=== PATIENT | female | born 1955 | race African-American/Black ===

== ENCOUNTER 2016-11-01 19:48 | Emergency (ER) | payer OTHER ==
[~2016-11-01] VITALS: Ht 154.9 cm; Wt 63.5 kg
[~2016-11-01 19:48] MED LIST: ALEVE220 M2 PO; AMLODIPINE BESY10 MG ORAL; AMLODIPINE BESYL5 MG ORAL; ANESTHETIC ORAL14 GM ORO; COLCHICINE0.6 M1 PO; DILANTIN100 MG ORAL; IBUPROFEN600 MG ORAL; LISINOPRIL20 MG ORAL; LISINOPRIL5 MG ORAL; MELOXICAM15 MG PO; NKM; NORCO 5-325 TA1 EACH ORAL; PREDNISONE20 M1 PO; RANITIDINE HCL150 MG PO; TRAMADOL HCL50 MG ORAL; VICODIN ES 7.51 EAC1 ORAL
[2016-11-01] MEDS ORDERED: Ketorolac 30mg Inj IM ONE (20:15)
[2016-11-01] MEDS ORDERED: IBUPROFEN600 MG ORAL (21:07)
[2016-11-01 21:08] VITALS: BP 132/87
[2016-11-01 21:15] VITALS: BP 132/87
--- NOTE | 2016-11-01 22:00 | Emergency Room Report ---
History of Present Illness General Chief Complaint: Pain Source: Patient Present Illness HPI 61-year-old female presents ED complaining of right knee pain. States she's had the pain for last 6 months but has not received medical attention yet. Patient states pain is throbbing, 8/10, worse with walking. Worse at the end of the day. No other aggravating or relieving factors. Denies any other associated symptom Allergies: Coded Allergies: NO KNOWN ALLERGIES (Unverified Allergy, Unknown, 01/24/15) Patient History Past Medical History: DM, HTN, seizures Past Surgical History: none Pertinent Family History: none Social History: Denies: alcohol use, drug use, smoking Now: No Immunizations: UTD Reviewed Nursing Documentation: PMH: Agreed, PSxH: Agreed Nursing Documentation-PMH Hx Hypertension: Yes Hx Diabetes: Yes - prediabetic Hx Gastrointestinal Problems: Yes Hx Seizures: Yes Review of Systems All Other Systems: negative except mentioned in HPI Physical Exam Vital Signs Date Time Temp Pulse Resp B/P Pulse Ox O2 Delivery O2 Flow Rate FiO2 11/01/16 19:56 98.1 76 17 134/91 98 Room Air Sp02 EP Interpretation: reviewed, normal General Appearance: no apparent distress, alert, GCS 15, non-toxic Head: normocephalic, atraumatic Eyes: bilateral eye PERRL, bilateral eye normal inspection ENT: hearing grossly normal, normal pharynx, no angioedema, normal voice Neck: full range of motion, supple/symm/no masses Respiratory: chest non-tender, lungs clear, normal breath sounds, speaking full sentences Cardiovascular #1: regular rate, rhythm, no edema Cardiovascular #2: 2+ carotid (R), 2+ carotid (L), 2+ radial (R), 2+ radial (L) , 2+ dorsalis pedis (R), 2+ dorsalis pedis (L) Gastrointestinal: normal bowel sounds, non tender, soft, non-distended, no guarding, no rebound Rectal: deferred Genitourinary: normal inspection, no CVA tenderness Musculoskeletal: back normal, gait/station normal, normal range of motion, tender - lateral aspect R knee Neurologic: alert, oriented x3, responsive, motor strength/tone normal, sensory intact, speech normal Psychiatric: judgement/insight normal, memory normal, mood/affect normal, no suicidal/homicidal ideation Reflexes: 3+ bicep (R), 3+ bicep (L), 3+ tricep (R), 3+ tricep (L), 3+ knee (R) , 3+ knee (L) Skin: normal color, no rash, warm/dry, well hydrated Lymphatic: no adenopathy Procedures Splinting Splinting : Pre-Made Type: PEGGY wrap - R knee Medical Decision Making Diagnostic Impression: Primary Impression: Knee pain Qualified Codes: M25.561 - Pain in right knee ER Course Hospital Course 61-year-old F presents to ED complaining of R knee pain x 6 months. Differential diagnoses include: Fracture, dislocation, sprain, contusion Clinical course Patient placed on stretcher. After initial history and physical, I ordered pain medications and Xrays of R knee Xrays prelim read shows no acute fracture/dislocation. Some minimal joint spacing noted. Given the pain is worse at end of the day consistent with arthritis. placed in peggy wrap Diagnosis - ankle sprain Stable and discharged to home with prescription for Motrin. apply ice, keep elevated. weight bear as tolerated. Followup with PMD. Return to ED if symptoms recur or worsen Other X-Ray Diagnostic Results Other X-Ray Diagnostic Results : X-Ray Ordered: R knee EP Interpretation: Yes Findings: no fractures, no dislocation, no soft tissue swelling Number of Views: 3 Last Vital Signs Date Time Temp Pulse Resp B/P Pulse Ox O2 Delivery O2 Flow Rate FiO2 11/01/16 21:15 98.1 84 17 132/87 98 Room Air Status: improved Disposition: HOME, SELF-CARE Condition: Stable Scripts Ibuprofen* (MOTRIN*) 600 Mg Tablet 600 MG ORAL Q8H Y for For Pain, #30 TAB 0 Refills Prov: LYNDON FERGUSON M.D. 11/01/16 Referrals: [facility] (PCP) Patient Instructions: Osteoarthritis Additional Instructions: apply ice, take nsaids, elevate LYNDON FERGUSON M.D. Nov 01, 2016 22:00
--- NOTE | 2016-11-02 10:35 | Diagnostic Imaging Report ---
Indication: Pain 3 views of the right knee were obtained. Findings: There is a joint effusion. There is narrowing of the medial and patellofemoral compartments with mild osteophyte formation. No acute fracture seen. Surgical clips noted in the lower femur. Impression: Osteoarthritis Joint effusion
== END 2016-11-01 21:17 | disposition home or self-care (01) ==
LOC: EMR 20:13
DX: M25.561 Pain in right knee (principal); I10 Essential (primary) hypertension; E11.9 Type 2 diabetes mellitus without complications; M17.11 Unilateral primary osteoarthritis, right knee
CPT/HCPCS: 29530; 73562; 96372; 99283; J1885

== ENCOUNTER 2017-06-27 08:34 | Emergency (ER) | payer MEDICAID, OTHER ==
[~2017-06-27] VITALS: Ht 157.5 cm; Wt 64.4 kg
[2017-06-27 08:50] VITALS: BP 123/89
[2017-06-27] MEDS ORDERED: Ketorolac 30mg Inj IV ONE (09:00)
--- NOTE | 2017-06-27 09:09 | Emergency Room Report ---
History of Present Illness General Chief Complaint: General Complaint Source: Patient, Medical Record Present Illness HPI Patient is a 62-year-old female who presented after increased left-sided facial pain and neck pain. The patient gradual onset of symptoms over the 3 days. Had patient denied any arm weakness. She reports having no recent trauma. She denied having any fever. Patient had reportedly been taking medications for hypertension. She denied any fever headache. She denied any chest pain. Allergies: Coded Allergies: NO KNOWN ALLERGIES (Unverified Allergy, Unknown, 01/24/15) Patient History Past Medical History: see triage record Reviewed Nursing Documentation: PMH: Agreed, PSxH: Agreed Nursing Documentation-PMH Past Medical History: No History, Except For Hx Hypertension: Yes Hx Diabetes: Yes - prediabetic Hx Gastrointestinal Problems: Yes - Hepatitis C History Of Psychiatric Problem: Yes - Depression Hx Seizures: Yes Review of Systems All Other Systems: negative except mentioned in HPI Physical Exam Vital Signs Date Time Temp Pulse Resp B/P (MAP) Pulse Ox O2 Delivery O2 Flow Rate FiO2 06/27/17 08:40 98.1 83 14 119/84 99 Room Air Sp02 EP Interpretation: reviewed, normal General Appearance: normal inspection, well appearing, no apparent distress, alert, GCS 15, non-toxic Head: atraumatic ENT: normal ENT inspection, hearing grossly normal, normal voice Neck: normal inspection, full range of motion, supple, no bony tend Respiratory: normal inspection, lungs clear, normal breath sounds, no respiratory distress, no retraction, no wheezing Cardiovascular #1: regular rate, rhythm, no edema Gastrointestinal: normal inspection, normal bowel sounds, non tender, soft, no guarding, no hernia Genitourinary: no CVA tenderness Musculoskeletal: normal inspection, back normal, normal range of motion Neurologic: normal inspection, alert, oriented x3, responsive, trimmer climber III-XII nml as tested, motor strength/tone normal, DTRs symmetric, SLR negative, speech normal, oriented Psychiatric: normal inspection, judgement/insight normal, mood/affect normal Skin: normal inspection, normal color, no rash Medical Decision Making Diagnostic Impression: Primary Impression: Acute neck pain ER Course Patient presented for neck pain. Differential diagnosis included vertebral artery dissection, myocardial infarction, cervical fracture, arthritis, spondylolithises. Because of complexity of patient's case laboratory testing and imaging studies were ordered. I EKG interpreted by me showed normal sinus rhythm with a rate of [address] or T wave changes.The patient was given pain medications. She is given prescription methocarbamol. A CT of the neck with contrast showed no evidence of acute dissection. CT head read by radiology showed a chronic white matter changes without evident CVA. The patient is advised to follow up with primary care doctor in 1-2 days. Patient is advised to return if any worsening condition or if any changes in status that are concerning. Labs Test 06/27/17 09:05 White Blood Count 5.3 K/UL (4.8-10.8) Red Blood Count 4.45 M/UL (4.20-5.40) Hemoglobin 12.9 G/DL (12.0-16.0) Hematocrit 39.0 % (37.0-47.0) Mean Corpuscular Volume 88 FL (80-99) Mean Corpuscular Hemoglobin 29.0 PG (27.0-31.0) Mean Corpuscular Hemoglobin Concent 33.1 G/DL (32.0-36.0) Red Cell Distribution Width 12.0 % (11.6-14.8) Platelet Count 146 K/UL (150-450) Mean Platelet Volume 8.4 FL (6.5-10.1) Neutrophils (%) (Auto) 54.9 % (45.0-75.0) Lymphocytes (%) (Auto) 33.3 % (20.0-45.0) Monocytes (%) (Auto) 6.6 % (1.0-10.0) Eosinophils (%) (Auto) 4.3 % (0.0-3.0) Basophils (%) (Auto) 1.0 % (0.0-2.0) Prothrombin Time 9.8 SEC (9.30-11.50) Prothromb Time International Ratio 0.9 (0.9-1.1) Activated Partial Thromboplast Time 28 SEC (23-33) Sodium Level 141 MMOL/L (136-145) Potassium Level 4.1 MMOL/L (3.5-5.1) Chloride Level 107 MMOL/L (98-107) Carbon Dioxide Level 27 MMOL/L (21-32) Anion Gap 7 mmol/L (5-15) Blood Urea Nitrogen 13 mg/dL (7-18) Creatinine 0.8 MG/DL (0.55-1.30) Estimat Glomerular Filtration Rate > 60 mL/min (>60) Glucose Level 89 MG/DL (74-106) Calcium Level 8.9 MG/DL (8.5-10.1) Total Bilirubin 0.3 MG/DL (0.2-1.0) Aspartate Amino Transf (AST/SGOT) 21 U/L (15-37) Alanine Aminotransferase (ALT/SGPT) 18 U/L (12-78) Alkaline Phosphatase 124 U/L (46-116) Troponin I 0.000 ng/mL (0.000-0.056) Total Protein 6.8 G/DL (6.4-8.2) Albumin 3.1 G/DL (3.4-5.0) Globulin 3.7 g/dL Albumin/Globulin Ratio 0.8 (1.0-2.7) Thyroid Stimulating Hormone (TSH) 1.515 uiU/mL (0.358-3.740) Last Vital Signs Date Time Temp Pulse Resp B/P (MAP) Pulse Ox O2 Delivery O2 Flow Rate FiO2 06/27/17 08:40 98.1 83 14 119/84 99 Room Air Status: improved Disposition: HOME, SELF-CARE Condition: Stable Scripts Methocarbamol* (ROBAXIN*) 500 Mg Tablet 500 MG PO TID, #21 TAB 0 Refills Prov: Dudley Blum 06/27/17 Dudley Blum Jun 27, 2017 09:09
--- NOTE | 2017-06-27 09:35 | Diagnostic Imaging Report ---
Indication: Headache Technique: Continuous helical CT scanning of the head was performed without intravenous contrast material. Axial and coronal 5 mm sections were generated. Dose: Total Dose Length Product - DLP routine [address] Dose Index - CTDIvol(s) 70.38 mGy. Automated exposure control was utilized for dose reduction. Comparison: 03/23/2011 Findings: The ventricles and sulci are normal. There is some periventricular and subcortical white matter low density. There is no shift of midline structures. No abnormal extra-axial fluid collections are noted. There is no evidence of intracerebral bleeding. No other abnormal high or low density areas are noted within the brain. Impression: Periventricular and subcortical white matter low density most consistent with chronic small vessel white matter ischemic change. Otherwise negative. The CT scanner at [facility] [place] is accredited by the [employer] and the scans are performed using protocols designed to limit radiation exposure to as low as reasonably achievable to attain images of sufficient resolution adequate for diagnostic evaluation.
[2017-06-27 09:37] LABS: ANION GAP 7 mmol/L (5-15); CALCIUM 8.9 MG/DL (8.5-10.1); CARBON DIOXIDE 27 MMOL/L (21-32); CHLORIDE 107 MMOL/L (98-107); CREATININE 0.8 MG/DL (0.55-1.30); GLOMERULAR FILTRATION RATE > 60 mL/min (>60); POTASSIUM 4.1 MMOL/L (3.5-5.1); SODIUM 141 MMOL/L (136-145)
[2017-06-27 09:43] LABS: EOSINOPHILS % (AUTO) 4.3 % (0.0-3.0); LYMPHOCYTES % (AUTO) 33.3 % (20.0-45.0); MEAN CORPUSCULAR HGB CONC 33.1 G/DL (32.0-36.0); MEAN CORPUSCULAR VOLUME 88 FL (80-99); MEAN PLATELET VOLUME 8.4 FL (6.5-10.1); MONOCYTES % (AUTO) 6.6 % (1.0-10.0); NEUTROPHILS % (AUTO) 54.9 % (45.0-75.0); PLATELET COUNT 146 K/UL (150-450); RED BLOOD COUNT 4.45 M/UL (4.20-5.40); WHITE BLOOD COUNT 5.3 K/UL (4.8-10.8)
[2017-06-27 09:47] LABS: INR 0.9 (0.9-1.1); PROTHROMBIN TIME 9.8 SEC (9.30-11.50)
[2017-06-27 09:50] LABS: ALANINE AMINOTRANSFERASE 18 U/L (12-78); ALBUMIN/GLOBULIN RATIO 0.8 (1.0-2.7); ASPARTATE AMINO TRANSFERASE 21 U/L (15-37); THYROID STIMULATING HORMONE 1.515 uiU/mL (0.358-3.740); TOTAL PROTEIN 6.8 G/DL (6.4-8.2)
[2017-06-27] MEDS ORDERED: ROBAXIN500 MG PO (11:48)
[2017-06-27 12:00] VITALS: BP 121/94
--- NOTE | 2017-06-30 15:39 | Cardiology Report ---
APPROVED REPORT EKG Measurement Heart [id number] Normal sinus rhythm Possible Left atrial enlargement Borderline ECG
== END 2017-06-27 12:00 | disposition home or self-care (01) ==
LOC: EMR 09:12
DX: M54.2 Cervicalgia (principal); R51 Headache; I10 Essential (primary) hypertension; F32.9 Major depressive disorder, single episode, unspecified; Z86.69 Personal history of other diseases of the nervous system and sense organs
CPT/HCPCS: 36415; 70450; 80053; 84443; 84484; 85025; 85610; 85730; 93005; 96374; 99284; J1885

== ENCOUNTER 2017-09-13 19:49 | Emergency (ER) | payer MEDICAID ==
[~2017-09-13] VITALS: Ht 157.5 cm; Wt 66.7 kg
[~2017-09-13 19:49] MED LIST changes: +ROBAXIN500 MG PO
[2017-09-13] MEDS ORDERED: GABAPENTIN300 MG ORAL (20:02)
[2017-09-13 20:15] VITALS: BP 106/78
[2017-09-13] MEDS ORDERED: ALPRAZOLAM0.25 MG ORAL (20:46)
[2017-09-13 20:55] VITALS: BP 106/78
--- NOTE | 2017-09-15 02:17 | Emergency Room Report ---
History of Present Illness General Chief Complaint: General Complaint Source: Patient Present Illness HPI 62-year-old female presents ED for evaluation. States that she feels very anxious and is crying. States she has to move out of her apartment next week. Did not know where she is going to live. patient states her heart is racing. Denies any chest pain or shortness of breath. Denies alcohol or drug use. Denies suicidal or homicidal ideation. No other aggravating relieving factors. Denies any other associated symptoms Allergies: Coded Allergies: NO KNOWN ALLERGIES (Unverified Allergy, Unknown, 01/24/15) Patient History Past Medical History: DM, HTN Past Surgical History: none Pertinent Family History: none Social History: Denies: smoking, alcohol use, drug use Now: No Immunizations: UTD Reviewed Nursing Documentation: PMH: Agreed, PSxH: Agreed Nursing Documentation-PMH Past Medical History: No History, Except For Hx Cardiac Problems: No - Arthritis Hx Hypertension: Yes Hx Diabetes: Yes - prediabetic Hx Gastrointestinal Problems: Yes - Hepatitis C Hx Seizures: Yes Review of Systems All Other Systems: negative except mentioned in HPI Physical Exam Vital Signs Date Time Temp Pulse Resp B/P (MAP) Pulse Ox O2 Delivery O2 Flow Rate FiO2 09/13/17 19:57 98.2 98 16 106/78 98 Room Air Sp02 EP Interpretation: reviewed, normal General Appearance: no apparent distress, alert, GCS 15, non-toxic Head: normocephalic, atraumatic Eyes: bilateral eye normal inspection, bilateral eye PERRL ENT: hearing grossly normal, normal pharynx, no angioedema, normal voice Neck: full range of motion, supple/symm/no masses Respiratory: chest non-tender, lungs clear, normal breath sounds, speaking full sentences Cardiovascular #1: regular rate, rhythm, no edema Cardiovascular #2: 2+ carotid (R), 2+ carotid (L), 2+ radial (R), 2+ radial (L) , 2+ dorsalis pedis (R), 2+ dorsalis pedis (L) Gastrointestinal: normal bowel sounds, non tender, soft, non-distended, no guarding, no rebound Rectal: deferred Genitourinary: normal inspection, no CVA tenderness Musculoskeletal: back normal, gait/station normal, normal range of motion, non- tender Neurologic: alert, oriented x3, responsive, motor strength/tone normal, sensory intact, speech normal Psychiatric: judgement/insight normal, memory normal, no suicidal/homicidal ideation, depressed affect, anxious Reflexes: 3+ bicep (R), 3+ bicep (L), 3+ tricep (R), 3+ tricep (L), 3+ knee (R) , 3+ knee (L) Skin: normal color, no rash, warm/dry, well hydrated Lymphatic: no adenopathy Medical Decision Making Diagnostic Impression: Primary Impression: Anxiety ER Course Hospital Course 62-year-old female presents ED crying, feeling anxious Differential diagnoses include: psychosis, substance abuse, anxiety Clinical course Patient placed on stretcher. on playground monitor. After initial history, exam reveals an elderly female in no acute distress. Upon arrival patient is tearful but is maintaining eye contact. Has stressful situation regarding her living situation. Patient states she feels very anxious. However there is no evidence of suicidal or homicidal ideation. I do not believe patient is a danger to herself or others Agreed to prescribe patient some xanax I. I feel this is a highly complex case requiring extensive working including EKG/Rhythm strip, Xray/CT/US, Blood/urine lab work, repeat exams while in ED, and administration of strong opiates/narcotics for pain control, admission to hospital or close patient follow up. Diagnosis - anxiety Stable and discharged to home with Rx Xanax. Followup with PMD. Return to ED if symptoms recur or worse Last Vital Signs Date Time Temp Pulse Resp B/P (MAP) Pulse Ox O2 Delivery O2 Flow Rate FiO2 09/13/17 20:55 98.2 78 16 106/78 98 Room Air Status: improved Disposition: HOME, SELF-CARE Condition: Stable Scripts Alprazolam* (XANAX*) 0.25 Mg Tablet 0.25 MG ORAL TID Y for For Anxiety, #20 TAB Prov: LYNDON FERGUSON M.D. 09/13/17 Patient Instructions: Panic Attacks, [id number] LYNDON FERGUSON M.D. Sep 15, 2017 02:17
== END 2017-09-13 20:55 | disposition home or self-care (01) ==
LOC: EMR 20:25
DX: F41.9 Anxiety disorder, unspecified (principal); I10 Essential (primary) hypertension; E11.9 Type 2 diabetes mellitus without complications
CPT/HCPCS: 99283

== ENCOUNTER 2017-10-01 00:37 | Emergency (ER) | payer MEDICAID ==
[~2017-10-01] VITALS: Ht 157.5 cm; Wt 66.2 kg
[~2017-10-01 00:37] MED LIST changes: +ALPRAZOLAM0.25 MG ORAL; +GABAPENTIN300 MG ORAL
[2017-10-01 00:51] VITALS: BP 135/91
--- NOTE | 2017-10-01 01:17 | Emergency Room Report ---
History of Present Illness General Chief Complaint: General Complaint Source: Patient Present Illness HPI Is a 62-year-old female presents with chief complaint of face getting darker. Onset for month or so. She was here earlier this month and did not mention anything about it. No pain. No trauma. No weight loss. Denies any other complaint. Allergies: Coded Allergies: NO KNOWN ALLERGIES (Unverified Allergy, Unknown, 01/24/15) Patient History Past Medical History: see triage record, old chart reviewed Past Surgical History: none Pertinent Family History: none Social History: Denies: smoking Now: No Immunizations: other Reviewed Nursing Documentation: PMH: Agreed, PSxH: Agreed Nursing Documentation-PMH Hx Cardiac Problems: No - Arthritis Hx Hypertension: Yes Hx Diabetes: Yes - prediabetic Hx Gastrointestinal Problems: Yes - Hepatitis C Hx Seizures: Yes Review of Systems Eye: Denies: eye pain, blurred vision ENT: Denies: ear pain, nose congestion, throat swelling Respiratory: Denies: cough, shortness of breath Cardiovascular: Denies: chest pain, palpitations Gastrointestinal: Denies: abdominal pain, diarrhea, nausea, vomiting Musculoskeletal: Denies: back pain, joint pain Skin: Denies: rash Neurological: Denies: headache, numbness Endocrine: Denies: increased thirst, increased urine Hematologic/Lymphatic: Denies: easy bruising All Other Systems: negative except mentioned in HPI Physical Exam Vital Signs Date Time Temp Pulse Resp B/P (MAP) Pulse Ox O2 Delivery O2 Flow Rate FiO2 10/01/17 00:40 98.5 85 16 135/91 96 Room Air 98.4 vitals normal Medical Decision Making Diagnostic Impression: Primary Impression: Skin abnormality ER Course She complaining of skin darkening. No trauma. She is dark skin and is reflected in her hands also. She denies any changes to her hands. There is no emergency here. Explained to the patient that she has some hormonal issue causing changes in her skin color is this can be worked up as an outpatient. We 'll discharge home. Last Vital Signs Date Time Temp Pulse Resp B/P (MAP) Pulse Ox O2 Delivery O2 Flow Rate FiO2 10/01/17 00:51 98.4 85 16 135/91 96 Room Air 98.4 Status: unchanged Disposition: HOME, SELF-CARE Condition: Stable Additional Instructions: followup with your DrGal for further workup regarding the color change in your skin. This type of testing cannot be done in the ER.return if symptom worsen. LETICIA PETIT M.D. Oct 01, 2017 01:17
[2017-10-01 01:30] VITALS: BP 135/91
== END 2017-10-01 01:30 | disposition home or self-care (01) ==
LOC: EMR 01:03
DX: L98.9 Disorder of the skin and subcutaneous tissue, unspecified (principal); I10 Essential (primary) hypertension; B19.20 Unspecified viral hepatitis C without hepatic coma
CPT/HCPCS: 99282

== ENCOUNTER 2018-01-19 06:09 | Emergency (ER) | payer MEDICAID ==
[~2018-01-19] VITALS: Ht 157.5 cm; Wt 60.3 kg
[2018-01-19 06:35] VITALS: BP 106/72
[2018-01-19] MEDS ORDERED: NORCO 5-325 TA1 EACH ORAL (06:40)
[2018-01-19] MEDS ORDERED: ZOFRAN4 MG ORAL (06:40)
[2018-01-19] MEDS ORDERED: GABAPENTIN300 MG ORAL (06:40)
[2018-01-19 06:53] VITALS: BP 106/72
--- NOTE | 2018-01-19 07:05 | Emergency Room Report ---
History of Present Illness General Chief Complaint: Pain Source: Patient Present Illness HPI Patient presents with complaints of diffuse body ache Back pain shoulder pain Lower extremity pain Initially patient reports that she is not sure why she has these pains Denies any fall or trauma Denies any chest pain or shortness of breath Denies any fevers or chills After reviewing CURES and discussing with her the regular pain medications she is receiving, she reports that she does have pain management for her arthritis and other pains however has not been having appropriate follow-up Allergies: Coded Allergies: NO KNOWN ALLERGIES (Unverified Allergy, Unknown, 01/19/18) Patient History Past Medical History: see triage record Pertinent Family History: none Reviewed Nursing Documentation: PMH: Agreed; PSxH: Agreed Nursing Documentation-PMH Hx Cardiac Problems: No - Arthritis Hx Hypertension: Yes Hx Seizures: Yes Review of Systems All Other Systems: negative except mentioned in HPI Physical Exam Vital Signs Date Time Temp Pulse Resp B/P (MAP) Pulse Ox O2 Delivery O2 Flow Rate FiO2 01/19/18 06:18 62 16 106/72 97 Room Air Sp02 EP Interpretation: reviewed, normal General Appearance: well appearing, no apparent distress Head: normocephalic, atraumatic Eyes: bilateral eye PERRL, bilateral eye EOMI ENT: hearing grossly normal, normal pharynx, TMs + canals normal, uvula midline Neck: full range of motion, supple, no meningismus, no bony tend Respiratory: lungs clear, normal breath sounds, no rhonchi, no respiratory distress, no retraction, no accessory muscle use Cardiovascular #1: normal peripheral pulses, regular rate, rhythm, no edema, no gallop, no JVD, no murmur Gastrointestinal: normal bowel sounds, non tender, soft, no mass, no organomegaly, non-distended, no guarding, no hernia, no pulsatile mass, no rebound Genitourinary: no CVA tenderness Musculoskeletal: normal inspection - Ambulate with a cane Neurologic: oriented x3, responsive, laundry machine operator III-XII nml as tested, motor strength/ tone normal, sensory intact Psychiatric: mood/affect normal Skin: normal color, no rash, warm/dry, palpation normal Lymphatic: normal inspection, no adenopathy Medical Decision Making Diagnostic Impression: Primary Impression: myalgia ER Course Patient has a benign medical evaluation Hemodynamically stable Patient feels that she is not getting the workup she requires outpatient reports that she has not been able to see her physician secondary to being on vacation/maternity On review of medical records patient also appears to be getting regular pain medications along with benzodiazepine This patient requires improved outpatient care It does appear that for the past 2 months patient has not had her regular medication which can explain her exacerbation of pain she was provided with prescription and requires close follow-up Last Vital Signs Date Time Temp Pulse Resp B/P (MAP) Pulse Ox O2 Delivery O2 Flow Rate FiO2 01/19/18 06:53 16 106/72 97 Room Air 01/19/18 06:18 62 Status: unchanged Disposition: HOME, SELF-CARE Condition: Stable Scripts Ondansetron (Zofran) 4 Mg Tablet 4 MG ORAL Q8H PRN for Nausea & Vomiting, #10 TAB 0 Refills Prov: Neville Meyers DO 01/19/18 Gabapentin* (GABAPENTIN*) 300 Mg Capsule 300 MG ORAL THREE TIMES A DAY, #30 CAP 0 Refills Prov: Neville Meyers DO 01/19/18 Hydrocodone Bit/Acetaminophen 5-325* (NORCO 5-325*) 1 Each Tablet 1 TAB ORAL Q6H PRN for For Pain, #10 TAB 0 Refills Prov: Neville Meyers DO 01/19/18 Referrals: NOT CHOSEN [facility]/MD,REFERRING Patient Instructions: Muscle Pain, Adult Additional Instructions: Patient is provided with the discharge instructions notified to follow up with primary doctor in the next 2-3 days otherwise return to the er with any worsening symptoms. Please note that this report is being documented using [employer] technology. This can lead to erroneous entry secondary to incorrect interpretation by the dictating instrument. Neville Meyers DO Jan 19, 2018 07:05
== END 2018-01-19 06:53 | disposition home or self-care (01) ==
LOC: EMR 06:37
DX: M79.1 Myalgia (principal); I10 Essential (primary) hypertension; Z86.69 Personal history of other diseases of the nervous system and sense organs
CPT/HCPCS: 99284

== ENCOUNTER 2018-12-18 22:51 | Emergency (ER) | payer MEDICAID, OTHER ==
[~2018-12-18] VITALS: Ht 154.9 cm; Wt 59.0 kg
[~2018-12-18 22:51] MED LIST changes: +ZOFRAN4 MG ORAL
--- NOTE | 2018-12-18 23:26 | NUR ---
ED Nurse Note: Pt from home, AAOx4, ambulatory, c/o left ear pain and tinnitus for 3 months but after taking [facility] Rx drops for 6 days no change with ear pain now 8/10 and now [place] in the left ear. Will assess and carry out ER MD's orders.
[2018-12-18 23:30] VITALS: BP 110/76
--- NOTE | 2018-12-18 23:38 | Emergency Room Report ---
History of Present Illness General Chief Complaint: Earache Source: Patient Present Illness HPI Patient presents with 3 months of left earache. She's been using earwax removal system. She denies any pain when she touches the ear lobe. She denies sore throat or fever or chills. Prior history of substance abuse. No chest pain, palpitations, nausea, vomiting, diarrhea, dysuria, abdominal pain , shortness of breath, depression, visual changes, headache. Allergies: Coded Allergies: NO KNOWN ALLERGIES (Unverified Allergy, Unknown, 01/19/18) Patient History Social History: Denies: smoking Social History Narrative Drove herself here Last Menstrual Period: stop at 2003 Now: No Reviewed Nursing Documentation: PMH: Agreed; PSxH: Agreed Nursing Documentation-PMH Hx Cardiac Problems: No - Arthritis Hx Hypertension: Yes Hx Seizures: Yes Review of Systems All Other Systems: negative except mentioned in HPI Physical Exam Vital Signs Date Time Temp Pulse Resp B/P (MAP) Pulse Ox O2 Delivery O2 Flow Rate FiO2 12/18/18 23:08 98.2 81 20 98 Room Air 12/18/18 23:30 110/76 General Appearance: well appearing, no apparent distress Head: normocephalic, atraumatic Eyes: bilateral eye PERRL, bilateral eye Scleral Injection ENT: hearing grossly normal, normal pharynx, normal voice, other - Left tympanic membrane with fluid and minimal erythema no pinna tenderness Neck: full range of motion, supple Respiratory: lungs clear, no respiratory distress, speaking full sentences Cardiovascular #1: regular rate, rhythm Cardiovascular #2: 2+ radial (L) Gastrointestinal: normal inspection Musculoskeletal: digits/nails normal, gait/station normal, no calf tenderness Neurologic: alert, oriented x3, grossly normal Psychiatric: mood/affect normal Skin: no rash Medical Decision Making Diagnostic Impression: Primary Impression: Left otitis media Qualified Codes: H66.002 - Acute suppurative otitis media without spontaneous rupture of ear drum, left ear ER Course Presents with left ear pain. At this time but exam is consistent with otitis media. She has no pinna tenderness. Antibiotics are indicated as well as pain medication. Patient stable for outpatient observation and treatment. Last Vital Signs Date Time Temp Pulse Resp B/P (MAP) Pulse Ox O2 Delivery O2 Flow Rate FiO2 12/18/18 23:30 98.2 80 20 110/76 98 Room Air Status: improved Disposition: HOME, SELF-CARE Condition: Improved Scripts Tramadol Hcl* (ULTRAM*) 50 Mg Tablet 50 MG ORAL Q6H PRN for For Pain, #6 TAB 0 Refills Prov: Emil Bosch MD 12/18/18 Acetaminophen (Tylenol) 325 Mg Tablet 650 MG ORAL Q6H PRN for Prn Pain/Headache/Temp > 101, #20 TAB 0 Refills Prov: Emil Bosch MD 12/18/18 Amoxicillin* (AMOXIL*) 500 Mg Capsule 500 MG ORAL THREE TIMES A DAY, #21 CAP Prov: Emil Bosch MD 12/18/18 Emil Bosch MD December 18, 2018 23:38
[2018-12-18] MEDS ORDERED: TRAMADOL HCL50 MG ORAL (23:40)
[2018-12-18] MEDS ORDERED: TYLENOL325 MG ORAL (23:40)
[2018-12-18] MEDS ORDERED: AMOXICILLIN500 MG ORAL (23:40)
[2018-12-18] MEDS ORDERED: Acetaminophen 500mg (ES) tab ORAL ONE (23:45)
--- NOTE | 2018-12-18 23:47 | NUR ---
ED Nurse Note: Pt cleared by health care Provider for discharge. DC instructions/prescription was given and explained to pt and verbalized understanding of teachings. All medical deviecs such as ID band removed. Pt is AAO x4, ambulatory and left with all personal belongings.
== END 2018-12-18 23:47 | disposition home or self-care (01) ==
LOC: EMR 23:42
DX: H66.92 Otitis media, unspecified, left ear (principal); I10 Essential (primary) hypertension
CPT/HCPCS: 99282

== ENCOUNTER 2018-12-29 15:57 | Emergency (ER) | payer OTHER ==
[~2018-12-29] VITALS: Ht 154.9 cm; Wt 59.0 kg
[~2018-12-29 15:57] MED LIST changes: +AMOXICILLIN500 MG ORAL; +TYLENOL325 MG ORAL
[2018-12-29 16:30] VITALS: BP 129/89
--- NOTE | 2018-12-29 16:30 | NUR ---
ED Nurse Note: pt came in due to tinitus and earache x 2 week despite of antibiotic use, pt able to walk with steady gait. seen by grace frost. will continue to monitor
--- NOTE | 2018-12-29 16:35 | Emergency Room Report ---
History of Present Illness General Chief Complaint: Earache Source: Patient Present Illness HPI 63 YO female presents to the ED c/o Tinnitus and 8/10 in severity fullness. no ear d/c. pt. finished course of amoxicillin abx. Pt. denies fevers, chills, swollen tender lymph nodes. pain behind the ear or external ear tenderness/ pain. Denies neck pain. Denies dizziness, N/V, ADAMS or loss of hearing. Allergies: Coded Allergies: NO KNOWN ALLERGIES (Unverified Allergy, Unknown, 01/19/18) Patient History Past Medical History: see triage record Past Surgical History: none Pertinent Family History: none Last Menstrual Period: na Now: No Reviewed Nursing Documentation: PMH: Agreed; PSxH: Agreed Nursing Documentation-PMH Past Medical History: No History, Except For Hx Cardiac Problems: No - Arthritis Hx Hypertension: Yes Hx Seizures: Yes Review of Systems All Other Systems: negative except mentioned in HPI Physical Exam Vital Signs Date Time Temp Pulse Resp B/P (MAP) Pulse Ox O2 Delivery O2 Flow Rate FiO2 12/29/18 16:20 98.1 69 20 129/89 (102) 97 Room Air Sp02 EP Interpretation: reviewed, normal General Appearance: no apparent distress, alert, GCS 15, non-toxic Head: normocephalic, atraumatic Eyes: bilateral eye normal inspection, bilateral eye PERRL ENT: hearing grossly normal, normal voice, other - Left Ear Canal is erythematous and macerated in appearance with some whitish dc noted, no TM involvement, no evidence of mastoiditis or preauricular LAD Neck: full range of motion Respiratory: chest non-tender, lungs clear, normal breath sounds, speaking full sentences Cardiovascular #1: regular rate, rhythm Musculoskeletal: back normal, gait/station normal, normal range of motion, non- tender Neurologic: alert, oriented x3, responsive, motor strength/tone normal, sensory intact, speech normal, grossly normal Psychiatric: judgement/insight normal Skin: normal color, no rash, warm/dry, well hydrated Lymphatic: no adenopathy Medical Decision Making PA Attestation Dr. meeks is my supervising Physician whom patient management has been discussed with. Diagnostic Impression: Primary Impression: Otitis externa of left ear Qualified Codes: H60.502 - Unspecified acute noninfective otitis externa, left ear Additional Impression: Tinnitus of left ear ER Course 63 YO female presents to the ED c/o Tinnitus and fullness. no ear d/c. pt. finished course of amoxicillin abx. Pt. denies fevers, chills, swollen tender lymph nodes. pain behind the ear or external ear tenderness/pain. Denies neck pain. Denies dizziness, N/V, ADAMS or loss of hearing. Ddx considered but are not limited to OM, OE, mastoiditis, TM perforation, FB Vital signs: are WNL, pt. is afebrile H&PE are most consistent with otitis externa ORDERS: none required at this time, the diagnosis is clinical -OTOSCOPY: Left Ear Canal is erythematous and macerated in appearance with some whitish dc noted, no TM involvement, no evidence of mastoiditis or preauricular LAD on PE ED INTERVENTIONS: None required at this time. DISCHARGE: At this time pt. is stable for d/c to home. With Otic ABX. Will provide printed patient care instructions, and any necessary prescriptions. Care plan and follow up instructions have been discussed with the patient prior to discharge. Last Vital Signs Date Time Temp Pulse Resp B/P (MAP) Pulse Ox O2 Delivery O2 Flow Rate FiO2 12/29/18 16:20 98.1 69 20 129/89 (102) 97 Room Air Status: improved Disposition: HOME, SELF-CARE Condition: Stable Scripts Pseudoephedrine Hcl (SUDOGEST) 30 Mg Tablet 30 MG PO Q6HR for 3 Days, #12 TAB Prov: Enedina Covington 12/29/18 Neomycin/Polymyxin B Sulf/Hc (AUUJGHII-EIFUIXIIM-RD EAR SOLN) 10 Ml Solution 4 DROP OT BID for 7 Days, #10 ML Prov: Enedina Covington 12/29/18 Patient Instructions: Otitis Externa, [id number], Tinnitus Additional Instructions: Take medications as directed. Follow up with a Primary Care Provider in 3-5 days, for Ears/Nose/Throat ( ENT) Specialist referral.Even if your symptoms have resolved. --Please review list of primary care clinics, if you do not already have a primary care provider Return sooner to ED if new symptoms occur, or current symptoms become worse. - Please note that this Emergency Department Report was dictated using [employer] audio installer technology software, occasionally this can lead to erroneous entry secondary to interpretation by the dictation equipment. Enedina Covington December 29, 2018 16:35
[2018-12-29] MEDS ORDERED: SUDOGEST30 MG PO (16:40)
[2018-12-29] MEDS ORDERED: NEOMYCIN-POLYMY10 ML OT (16:40)
[2018-12-29 16:50] VITALS: BP 129/89
--- NOTE | 2018-12-29 16:50 | NUR ---
ER DISCHARGE NOTE: Patient is cleared to be discharged per ERMD, pt is aox4, on room air, with stable vital signs. pt was given dc and prescription instructions, pt was able to verbalize understanding, pt id band removed without complications. pt is able to ambulate with steady gait. pt took all belongings.
== END 2018-12-29 16:50 | disposition home or self-care (01) ==
LOC: EMR 16:41
DX: H60.502 Unspecified acute noninfective otitis externa, left ear (principal); H93.12 Tinnitus, left ear; I10 Essential (primary) hypertension; M19.90 Unspecified osteoarthritis, unspecified site; G40.909 Epilepsy, unspecified, not intractable, without status epilepticus
CPT/HCPCS: 99282

== ENCOUNTER 2018-12-31 21:37 | Emergency (ER) | payer OTHER ==
[~2018-12-31] VITALS: Ht 154.9 cm; Wt 60.3 kg
[~2018-12-31 21:37] MED LIST changes: +NEOMYCIN-POLYMY10 ML OT; +SUDOGEST30 MG PO
[2018-12-31 22:12] VITALS: BP 131/91
--- NOTE | 2018-12-31 22:19 | NUR ---
ER Nurse Note: Pt came from home c/o gnerealized pain in her bilateral lower extremites and back for "a while". Pt stated pain is worse today than usual but did not take any medications for the pain. Pt stated she lost weight within one year without trying. Pt a&ox4, VSS, no signs of distress. Urine sample provided; ERMD at pt side; will continue to monitor.
--- NOTE | 2018-12-31 22:29 | Emergency Room Report ---
History of Present Illness General Chief Complaint: General Complaint Source: Patient Present Illness HPI Patient presents with increased body pain. She's on gabapentin at home but is not taking any other narcotics at this time. She can't take nonsteroidals because the hernia in her stomach. She denies fevers. She's feeling some tingling in her hands or feet. She denies diabetes. The main pain is bone pain and most significant is a right knee. She says she has boon on bone osteoarthritis there and is due to have knee replacement in 2 months. Her urine has changed and is roofer gypsum in color she denies dysuria. There is no upper respiratory symptoms, vomiting or diarrhea. Denies any headache. There' s no depression. Allergies: Coded Allergies: NO KNOWN ALLERGIES (Unverified Allergy, Unknown, 12/31/18) Patient History Past Medical History: see triage record Social History: Denies: smoking, alcohol use, drug use Social History Narrative Lives with her daughter Reviewed Nursing Documentation: PMH: Agreed; PSxH: Agreed Nursing Documentation-PMH Hx Cardiac Problems: No - Arthritis Hx Hypertension: Yes Hx Seizures: Yes Review of Systems All Other Systems: negative except mentioned in HPI Physical Exam Vital Signs Date Time Temp Pulse Resp B/P (MAP) Pulse Ox O2 Delivery O2 Flow Rate FiO2 12/31/18 21:53 98.2 78 16 131/91 (104) 96 Room Air Sp02 EP Interpretation: reviewed, normal General Appearance: no apparent distress, GCS 15, thin, Chronically Ill Head: normocephalic Eyes: bilateral eye normal inspection, bilateral eye PERRL, bilateral eye EOMI ENT: moist mucus membranes Neck: supple Respiratory: lungs clear, normal breath sounds Cardiovascular #1: regular rate, rhythm Cardiovascular #2: 2+ radial (R) Gastrointestinal: normal inspection, normal bowel sounds, non tender, no mass, non-distended Musculoskeletal: back normal, gait/station normal, normal range of motion, no calf tenderness, tender - Right knee ligaments stable no effusion slightly decreased range of motion flexion Neurologic: alert, oriented x3, motor strength/tone normal, DTRs symmetric, sensory intact, cerebellar normal, speech normal - Took, grossly normal Skin: normal inspection, warm/dry Medical Decision Making Diagnostic Impression: Primary Impression: Hypokalemia Additional Impressions: UTI (urinary tract infection) Qualified Codes: N30.00 - Acute cystitis without hematuria Knee pain Qualified Codes: M25.561 - Pain in right knee ER Course Patient presents with acute body pain and tingling and some numbness. Differential includes electrolyte imbalance, exacerbation of chronic pain, occult infection amongst others. Labs will be obtained and the patient will be treated with Tylenol here. She drove here. Labs significant for normal white count and sedimentation rate. CMP with low potassium. Urinalysis with pyuria. Patient given oral potassium here and started on antibiotics. Discussed results with patient. Also discussed the need for outpatient follow. Patient improved with treatment and stable for outpatient observation and treatment. Laboratory Tests Test 12/31/18 22:35 White Blood Count 5.7 K/UL (4.8-10.8) Red Blood Count 4.76 M/UL (4.20-5.40) Hemoglobin 13.0 G/DL (12.0-16.0) Hematocrit 38.9 % (37.0-47.0) Mean Corpuscular Volume 82 FL (80-99) Mean Corpuscular Hemoglobin 27.3 PG (27.0-31.0) Mean Corpuscular Hemoglobin Concent 33.4 G/DL (32.0-36.0) Red Cell Distribution Width 11.2 % (11.6-14.8) L Platelet Count 152 K/UL (150-450) Mean Platelet Volume 7.0 FL (6.5-10.1) Neutrophils (%) (Auto) 43.9 % (45.0-75.0) L Lymphocytes (%) (Auto) 43.1 % (20.0-45.0) Monocytes (%) (Auto) 7.5 % (1.0-10.0) Eosinophils (%) (Auto) 4.1 % (0.0-3.0) H Basophils (%) (Auto) 1.4 % (0.0-2.0) Erythrocyte Sedimentation Rate 14 MM/HR (0-30) Urine Color Laura Urine Appearance Clear Urine pH 6 (4.5-8.0) Urine Specific [place] 1.020 (1.005-1.035) Urine Protein Negative (NEGATIVE) Urine Glucose (UA) Negative (NEGATIVE) Urine Ketones Negative (NEGATIVE) Urine Blood Negative (NEGATIVE) Urine Nitrite Negative (NEGATIVE) Urine Bilirubin Negative (NEGATIVE) Urine Ictotest Negative (NEGATIVE) Urine Urobilinogen Normal MG/DL (0.0-1.0) Urine Leukocyte Esterase 1+ (NEGATIVE) H Urine RBC 0-2 /HPF (0 - 2) Urine WBC 5-10 /HPF (0 - 2) H Urine Squamous Epithelial Cells Moderate /LPF (NONE/OCC) H Urine Bacteria Few /HPF (NONE) Sodium Level 138 MMOL/L (136-145) Potassium Level 2.7 MMOL/L (3.5-5.1) *L Chloride Level 99 MMOL/L (98-107) Carbon Dioxide Level 36 MMOL/L (21-32) H Anion Gap 4 mmol/L (5-15) L Blood Urea Nitrogen 14 mg/dL (7-18) Creatinine 0.8 MG/DL (0.55-1.30) Estimate Glomerular Filtration Rate > 60 mL/min (>60) Glucose Level 108 MG/DL (74-106) H Calcium Level 9.6 MG/DL (8.5-10.1) Total Bilirubin 0.7 MG/DL (0.2-1.0) Aspartate Amino Transferase (AST) 17 U/L (15-37) Alanine Aminotransferase (ALT) 17 U/L (12-78) Alkaline Phosphatase 112 U/L (46-116) Total Protein 7.4 G/DL (6.4-8.2) Albumin 3.4 G/DL (3.4-5.0) Globulin 4.0 g/dL Albumin/Globulin Ratio 0.9 (1.0-2.7) L Rhythm Strip Diag. Results EP Interpretation: yes Rhythm: NSR, no PVC's, no ectopy Last Vital Signs Date Time Temp Pulse Resp B/P (MAP) Pulse Ox O2 Delivery O2 Flow Rate FiO2 01/01/19 00:00 98.4 18 124/80 100 Room Air 12/31/18 22:12 78 Status: improved Disposition: HOME, SELF-CARE Condition: Improved Scripts Potassium Chloride* (K-DUR*) 20 Meq Tab.er.prt 20 MEQ ORAL DAILY, #14 TAB 2 Refills Prov: Emil Bosch MD 01/01/19 Hydrocodone Bit/Acetaminophen 5-325* (NORCO 5-325*) 1 Each Tablet 1 TAB ORAL Q6H PRN for For Pain, #8 TAB 0 Refills Prov: Emil Bosch MD 01/01/19 Emil Bosch MD December 31, 2018 22:29
[2018-12-31] MEDS ORDERED: Acetaminophen 500mg (ES) tab ORAL ONE (22:30)
[2018-12-31 22:51] LABS: APPEARANCE,URINE CLEAR; BASOPHILS % (AUTO) 1.4 % (0.0-2.0); BILIRUBIN, URINE NEGATIVE (NEGATIVE); COLOR,URINE AMBER; EOSINOPHILS % (AUTO) 4.1 % (0.0-3.0); GLUCOSE, URINE (UA) NEGATIVE (NEGATIVE); HEMATOCRIT 38.9 % (37.0-47.0); KETONES,URINE NEGATIVE (NEGATIVE); LEUKOCYTE ESTERASE ,URINE 1+ (NEGATIVE); LYMPHOCYTES % (AUTO) 43.1 % (20.0-45.0); MEAN CORPUSCULAR VOLUME 82 FL (80-99); MONOCYTES % (AUTO) 7.5 % (1.0-10.0); NEUTROPHILS % (AUTO) 43.9 % (45.0-75.0); NITRITE,URINE NEGATIVE (NEGATIVE); PH,URINE 6 (4.5-8.0); PLATELET COUNT 152 K/UL (150-450); PROTEIN,URINE NEGATIVE (NEGATIVE); RED BLOOD COUNT 4.76 M/UL (4.20-5.40); RED CELL DISTRIBUTION WIDTH 11.2 % (11.6-14.8); UROBILINOGEN,URINE NORMAL MG/DL (0.0-1.0); WHITE BLOOD COUNT 5.7 K/UL (4.8-10.8)
[2018-12-31 23:04] LABS: ALANINE AMINOTRANSFERASE 17 U/L (12-78); ALBUMIN 3.4 G/DL (3.4-5.0); ALBUMIN/GLOBULIN RATIO 0.9 (1.0-2.7); ALKALINE PHOSPHATASE 112 U/L (46-116); ANION GAP 4 mmol/L (5-15); ASPARTATE AMINO TRANSFERASE 17 U/L (15-37); BILIRUBIN,TOTAL 0.7 MG/DL (0.2-1.0); BLOOD UREA NITROGEN 14 mg/dL (7-18); CALCIUM 9.6 MG/DL (8.5-10.1); CARBON DIOXIDE 36 MMOL/L (21-32); CHLORIDE 99 MMOL/L (98-107); CREATININE 0.8 MG/DL (0.55-1.30); SODIUM 138 MMOL/L (136-145)
[2018-12-31 23:07] LABS: POTASSIUM 2.7 MMOL/L (3.5-5.1)
[2019-01-01] VITALS: BP 124/80
[2019-01-01] MEDS ORDERED: POTASSIUM CHLO20 ME1 ORAL (00:34)
[2019-01-01] MEDS ORDERED: NORCO 5-325 TA1 EACH ORAL (00:34)
--- NOTE | 2019-01-01 00:58 | NUR ---
ER DISCHARGE NOTE: Patient is cleared to be discharged per ERMD, pt is aox4, on room air, with stable vital signs. pt was given dc and prescription instructions, pt was able to verbalize understanding, pt id band and iv site removed without complications. pt is able to ambulate with steady gait. pt took all belongings.
== END 2019-01-01 04:00 | disposition home or self-care (01) ==
LOC: EMR 01-01 03:48
DX: E87.6 Hypokalemia (principal); N39.0 Urinary tract infection, site not specified; M25.561 Pain in right knee; I10 Essential (primary) hypertension; Z86.69 Personal history of other diseases of the nervous system and sense organs
CPT/HCPCS: 36415; 80053; 81001; 85025; 85651; 99283; J8499

== ENCOUNTER 2019-07-08 21:01 | Emergency (ER) | payer OTHER ==
[~2019-07-08] VITALS: Ht 154.9 cm; Wt 59.9 kg
[~2019-07-08 21:01] MED LIST changes: +POTASSIUM CHLO20 ME1 ORAL
[2019-07-08 21:19] VITALS: BP 132/90
--- NOTE | 2019-07-08 21:44 | Emergency Room Report ---
History of Present Illness General Chief Complaint: Earache Present Illness HPI Patient is a 64-year-old female presents after increased difficulty with hearing out of her left ear. Patient had recently been using Q-tips to her left ear. She denies any pain. She had not been having any fever. She reports having increased loss of hearing to that side. She denies any bleeding or discharge. She had previous been using eardrops. Allergies: Coded Allergies: NO KNOWN ALLERGIES (Unverified Allergy, Unknown, 12/31/18) Patient History Past Medical History: see triage record Now: No Reviewed Nursing Documentation: PMH: Agreed; PSxH: Agreed Nursing Documentation-PMH Hx Cardiac Problems: No - Arthritis Hx Hypertension: Yes Hx Seizures: Yes Review of Systems All Other Systems: negative except mentioned in HPI Physical Exam Vital Signs Date Time Temp Pulse Resp B/P (MAP) Pulse Ox O2 Delivery O2 Flow Rate FiO2 07/08/19 21:16 98.4 75 16 132/90 (104) 96 Room Air General Appearance: well appearing, no apparent distress, alert, GCS 15 Head: normocephalic, atraumatic ENT: hearing grossly normal, normal voice, other - foreign material in left ear canal/wax impaction Neck: full range of motion, supple Respiratory: no respiratory distress, speaking full sentences Musculoskeletal: normal inspection, gait/station normal Neurologic: alert, motor strength/tone normal, field services analyst III-XII nml as tested, EOM palsy, oriented x3, normal gait Psychiatric: mood/affect normal Skin: no rash Medical Decision Making Diagnostic Impression: Primary Impression: Foreign body of left ear Additional Impression: Cerumen impaction ER Course Patient presented for decreased hearing her left ear. Differential diagnosis include was not limited to otitis media, foreign body, cerumen impaction among others. Patient has a benign exam and does not appear to require any imaging or laboratory testing at this time. Foreign body was removed with forceps. Patient was noted to have marked improvement in her hearing after this was removed. She reports having marked improvement and does not appear to have any evidence of infection. Patient was advised to follow-up with her primary care physician for recheck if needed. She advised to return if worse. Last Vital Signs Date Time Temp Pulse Resp B/P (MAP) Pulse Ox O2 Delivery O2 Flow Rate FiO2 07/08/19 21:19 98.4 75 16 132/90 96 Room Air Status: improved Disposition: HOME, SELF-CARE Condition: Stable Dudley Blum MD Jul 08, 2019 21:44
[2019-07-08 21:47] VITALS: BP 132/90
== END 2019-07-08 21:47 | disposition home or self-care (01) ==
LOC: EMR 21:33
DX: T16.2XXA Foreign body in left ear, initial encounter (principal); X58.XXXA Exposure to other specified factors, initial encounter; H61.22 Impacted cerumen, left ear; I10 Essential (primary) hypertension; G40.909 Epilepsy, unspecified, not intractable, without status epilepticus
CPT/HCPCS: 99283

== ENCOUNTER → 2019-10-05 | Emergency (ER) | payer OTHER ==
[~2019-10-05] VITALS: Ht 157.5 cm; Wt 56.7 kg
[~2019-10-05] MED LIST changes: +Omnipaque-300 100ml vial INJ PRN
[2019-10-05 22:54] VITALS: BP 127/93
--- NOTE | 2019-10-05 23:25 | Emergency Room Report ---
History of Present Illness General Chief Complaint: General Complaint Source: Patient Present Illness HPI 64-year-old female history of hypertension presents with weight loss since 2017 no known aggravating relieving factors severity is mild, constant patient presents for evaluation of her weight loss, any chest pain shortness of breath no fevers no chills no abdominal pain Allergies: Coded Allergies: NO KNOWN ALLERGIES (Unverified Allergy, Unknown, 12/31/18) Patient History Past Medical History: see triage record Reviewed Nursing Documentation: PMH: Agreed; PSxH: Agreed Nursing Documentation-PMH Hx Cardiac Problems: No - Arthritis Hx Hypertension: Yes Hx Seizures: Yes Review of Systems All Other Systems: negative except mentioned in HPI Physical Exam Vital Signs Date Time Temp Pulse Resp B/P (MAP) Pulse Ox O2 Delivery O2 Flow Rate FiO2 10/05/19 22:54 98.1 92 19 127/93 (104) 93 Room Air Sp02 EP Interpretation: reviewed, normal General Appearance: well appearing, no apparent distress, alert Head: normocephalic, atraumatic Eyes: bilateral eye PERRL, bilateral eye EOMI ENT: uvula midline, moist mucus membranes Neck: supple, thyroid normal, supple/symm/no masses Respiratory: lungs clear, no respiratory distress, no retraction, no accessory muscle use Cardiovascular #1: normal peripheral pulses, regular rate, rhythm, no edema, no gallop, no murmur Gastrointestinal: non tender, soft, no guarding, no rebound Musculoskeletal: normal inspection Neurologic: alert, oriented x3 Psychiatric: mood/affect normal Skin: no rash, warm/dry Medical Decision Making Diagnostic Impression: Primary Impression: Encounter for generalized patient complaints Additional Impression: Weight loss, non-intentional ER Course 64-year-old female presents with weight loss unknown cause Patient is leaving his medical advice states she has to help her daughter patient is aware of the risks and benefits The patient has requested to leave the ED against medical advice. The patient reason(s) for leaving include, but are not limited to, the following: I have to help my daughter. I believe this patient is of sound mind and competent to refuse medical care. The patient is responding and asking questions appropriately. The patient is oriented to person, place and time. The patient is not psychotic, delusional, suicidal, homicidal or hallucinating. The patient demonstrates a normal mental capacity to make decisions regarding their healthcare. The patient is clinically sober and does not appear to be under the influence of any illicit drugs at this time. The patient has been advised of the risks, in layman terms, of leaving AMA which include, but are not limited to , coma, permanent disability, loss of current lifestyle, delay in diagnosis. Alternatives have been offered - the patient remains steadfast in their wish to leave. The patient has been advised that should they change their mind they are welcome to return to this hospital, or any other, at any time. The patient understands that in no way does an AMA discharge mean that I do not want them to have the best medical care available. To this end, I have provided appropriate prescriptions, referrals, and discharge instructions. The patient did sign AMA paperwork. The above discussion was witnessed by another member of staff. Last Vital Signs Date Time Temp Pulse Resp B/P (MAP) Pulse Ox O2 Delivery O2 Flow Rate FiO2 10/05/19 22:54 98.1 92 19 127/93 (104) 93 Room Air Disposition: AGAINST MEDICAL ADVICE Condition: Stable Miguel Villafuerte MD Oct 05, 2019 23:25
== END | disposition left against medical advice (07) ==
LOC: EMR 23:20
DX: R63.4 Abnormal weight loss (principal); Z68.22 Body mass index [BMI] 22.0-22.9, adult; I10 Essential (primary) hypertension; G40.909 Epilepsy, unspecified, not intractable, without status epilepticus
CPT/HCPCS: 71045; Z7502; 99282

== ENCOUNTER 2019-11-03 03:20 | Emergency (ER) | payer OTHER ==
[~2019-11-03] VITALS: Ht 154.9 cm; Wt 56.7 kg
[~2019-11-03 03:20] MED LIST changes: -Omnipaque-300 100ml vial INJ PRN
[2019-11-03 03:40] VITALS: BP 158/102
--- NOTE | 2019-11-03 03:40 | NUR ---
ED Nurse Note: Pt walked into ED for c/o abdominal pain x "several years" per pt. Pt states pain is 10/10 and cramping in nature. Pt is aaox4, breathing is normal and unlabored and ambulatory with steady gait. Pt has hx of hernia and is unsure if pain is related to that. Pt connected to potline monitor and placed into gown. Will continue to monitor.
--- NOTE | 2019-11-03 03:45 | NUR ---
ED Nurse Note: Pt also reports weight loss and decrease in appetite. Pt states problem has been ongoing since 2017 and she has seen her PCP and other ER's for the problem.
--- NOTE | 2019-11-03 03:50 | Emergency Room Report ---
History of Present Illness General Chief Complaint: Abdominal Pain Source: Patient Present Illness HPI This is a 64-year-old female with history of high blood pressure. She presents with chief complaint of weight loss and abdominal fullness. This been ongoing since 2017. She says she lost about 20 pounds. Says she feels stressed a lot. She is been here several times and to her primary care doctor and to [facility]. She says she is get blood work but nothing else. No recent CT scan. She said her doctor order a colonoscopy already. Patient denies any trauma. No fever chills. No appetite however. Last cocaine use was a year ago. No pain. No vaginal bleeding or discharge. Allergies: Coded Allergies: NO KNOWN ALLERGIES (Unverified Allergy, Unknown, 12/31/18) COVID-19 Screening Contact w/high risk pt: No Recent Travel to affected area: No Experienced COVID-19 symptoms?: No Patient History Past Medical History: HTN Past Surgical History: none Pertinent Family History: none Social History: Denies: smoking Now: No Immunizations: other Reviewed Nursing Documentation: PMH: Agreed; PSxH: Agreed Nursing Documentation-PMH Past Medical History: No History, Except For Hx Cardiac Problems: No - Arthritis Hx Hypertension: Yes Hx Seizures: Yes Review of Systems Eye: Denies: eye pain, blurred vision ENT: Denies: ear pain, nose congestion, throat swelling Respiratory: Denies: cough, shortness of breath Cardiovascular: Denies: chest pain, palpitations Gastrointestinal: Reports: abdominal pain; Denies: diarrhea, nausea, vomiting Musculoskeletal: Denies: back pain, joint pain Skin: Denies: rash Neurological: Denies: headache, numbness Endocrine: Denies: increased thirst, increased urine Hematologic/Lymphatic: Denies: easy bruising All Other Systems: negative except mentioned in HPI Physical Exam Vital Signs Date Time Temp Pulse Resp B/P (MAP) Pulse Ox O2 Delivery O2 Flow Rate FiO2 11/03/19 03:37 98.1 84 15 158/102 (120) 97 Room Air Vitals with high blood pressure Sp02 EP Interpretation: reviewed, normal General Appearance: well appearing, no apparent distress, alert Head: normocephalic, atraumatic Eyes: bilateral eye PERRL, bilateral eye EOMI ENT: hearing grossly normal, normal pharynx Neck: full range of motion, supple, no meningismus Respiratory: chest non-tender, lungs clear, normal breath sounds Cardiovascular #1: regular rate, rhythm, no murmur Gastrointestinal: normal bowel sounds, non tender, no mass, no organomegaly, no bruit, non-distended Musculoskeletal: back normal, normal range of motion, gait/station normal Psychiatric: mood/affect normal Medical Decision Making Diagnostic Impression: Primary Impression: Cocaine abuse Additional Impressions: Weight loss, non-intentional Abdominal pain Qualified Codes: R10.84 - Generalized abdominal pain ER Course Patient presents with weight loss and chronic abdominal pain/pain. Labs unremarkable. Urinalysis positive for cocaine. CT scan unremarkable. Patient said that her doctor may refer her for colonoscopy last week. Will discharge home. I see no evidence of acute abdomen or obstruction. No infectious cause. CT/MRI/US Diagnostic Results CT/MRI/US Diagnostic Results : Imaging Test Ordered: CT abdomen and pelvis Impression Read by radiologist. No acute process. Last Vital Signs Date Time Temp Pulse Resp B/P (MAP) Pulse Ox O2 Delivery O2 Flow Rate FiO2 11/03/19 03:40 98.1 84 15 158/102 97 Room Air Status: improved Disposition: HOME, SELF-CARE Condition: Stable Referrals: [facility] (PCP) Patient Instructions: Abdominal Pain, Adult Additional Instructions: Stop using drugs. Follow-up with your doctor in 7 days. Follow-up with your doctor regarding your colonoscopy. Return if symptoms worsen. Chava García MD Nov 03, 2019 03:50
[2019-11-03 04:20] LABS: APPEARANCE,URINE CLEAR; BILIRUBIN, URINE NEGATIVE (NEGATIVE); COLOR,URINE PALE YELLOW; GLUCOSE, URINE (UA) NEGATIVE (NEGATIVE); KETONES,URINE NEGATIVE (NEGATIVE); LEUKOCYTE ESTERASE ,URINE NEGATIVE (NEGATIVE); NITRITE,URINE NEGATIVE (NEGATIVE); PH,URINE 6 (4.5-8.0); PROTEIN,URINE NEGATIVE (NEGATIVE); UROBILINOGEN,URINE NORMAL MG/DL (0.0-1.0)
[2019-11-03 04:29] LABS: BASOPHILS % (AUTO) 1.8 % (0.0-2.0); EOSINOPHILS % (AUTO) 2.1 % (0.0-3.0); HEMATOCRIT 41.4 % (37.0-47.0); HEMOGLOBIN 13.8 G/DL (12.0-16.0); LYMPHOCYTES % (AUTO) 27.5 % (20.0-45.0); MEAN CORPUSCULAR VOLUME 83 FL (80-99); MONOCYTES % (AUTO) 8.2 % (1.0-10.0); NEUTROPHILS % (AUTO) 60.4 % (45.0-75.0); PLATELET COUNT 166 K/UL (150-450); RED BLOOD COUNT 5.01 M/UL (4.20-5.40); RED CELL DISTRIBUTION WIDTH 11.4 % (11.6-14.8); WHITE BLOOD COUNT 5.8 K/UL (4.8-10.8)
[2019-11-03 04:41] LABS: ANION GAP 12 mmol/L (5-15); BLOOD UREA NITROGEN 12 mg/dL (7-18); CALCIUM 9.5 MG/DL (8.5-10.1); CARBON DIOXIDE 27 MMOL/L (21-32); CHLORIDE 100 MMOL/L (98-107); CREATININE 0.6 MG/DL (0.55-1.30); SODIUM 139 MMOL/L (136-145)
[2019-11-03 04:46] LABS: ALANINE AMINOTRANSFERASE 17 U/L (12-78); ALBUMIN 3.7 G/DL (3.4-5.0); ALBUMIN/GLOBULIN RATIO 0.9 (1.0-2.7); ALKALINE PHOSPHATASE 126 U/L (46-116); ASPARTATE AMINO TRANSFERASE 23 U/L (15-37); BILIRUBIN,TOTAL 0.6 MG/DL (0.2-1.0)
--- NOTE | 2019-11-03 05:12 | Diagnostic Imaging Report ---
Indication: Abdominal pain Technique: Spiral acquisitions obtained through the abdomen and pelvis. No oral contrast utilized, per emergency room physician request No IV contrast utilized, per referring physician request.. Multiplanar reconstructions were generated. Total dose length product 190 mGycm. CTDIvol(s) 4 mGy. Dose reduction achieved using automated exposure control Comparison: 11/14/2015 Findings: There is demonstration of what is probably a normal appendix. There is no evidence of colonic diverticulosis or diverticulitis. There is a small bowel anastomosis in the left upper quadrant. This segment is mildly dilated but there is no evidence of an obstructive process. There is a broad-based ventral hernia into which protrudes the edge of the dilated small bowel as well as a few other small bowel loops. This does not appear to be obstructive, however. No free or loculated intraperitoneal gas or fluid is evident. The distal esophagus, stomach, duodenum are unremarkable. Lack of IV contrast limits assessment of the solid organs. The gallbladder is nondistended, contains multiple gallstones. The liver is grossly unremarkable. No biliary ductal dilatation. The spleen demonstrates subtle low-attenuation areas which are much more apparent on prior postcontrast exam. These appear unchanged The pancreas, adrenals, kidneys are all unremarkable. No pelvic mass or adenopathy.. These findings are similar to those demonstrated previously. Previously demonstrated gallbladder wall edema and gallbladder distention is no longer evident. A calcified lesion is seen in the left retroperitoneum, probably an old postinflammatory node, unchanged. Uterus and adnexal structures appear unremarkable. There is surgical hardware seen reducing old healed left hip fracture. The bones demonstrate degenerative spondylosis changes. There are atelectatic changes and possibly some hazy infiltrate at the left lung base. There are posterior dependent atelectatic changes at the right lung base. Impression: No acute abnormality Postsurgical small bowel changes, as described Broad-based nonobstructive ventral hernia again demonstrated. Cholelithiasis. Note that previously demonstrated gallbladder distention and wall thickening is no longer evident Stable and presumed benign splenic low-attenuation lesions Other findings as noted, including basilar atelectatic changes, old surgically repaired left hip fracture, degenerative spondylosis, calcified presumed postinflammatory left-sided retroperitoneal node This agrees with the preliminary interpretation provided overnight by [facility] teleradiology service. The CT scanner at [facility] is accredited by the [employer] and the scans are performed using protocols designed to limit radiation exposure to as low as reasonably achievable to attain images of sufficient resolution adequate for diagnostic evaluation.
[2019-11-03 05:25] VITALS: BP 153/98
== END 2019-11-03 05:25 | disposition home or self-care (01) ==
LOC: EMR 03:42
DX: F14.10 Cocaine abuse, uncomplicated (principal); R10.84 Generalized abdominal pain; R63.4 Abnormal weight loss; I10 Essential (primary) hypertension; G40.909 Epilepsy, unspecified, not intractable, without status epilepticus; Z68.23 Body mass index [BMI] 23.0-23.9, adult; K43.9 Ventral hernia without obstruction or gangrene; K80.20 Calculus of gallbladder without cholecystitis without obstruction; M47.9 Spondylosis, unspecified
CPT/HCPCS: 36415; 74176; 80053; 80307; 81003; 83690; 85025; 96360; J7030; Z7502; 99284

== ENCOUNTER → 2019-12-20 | Emergency (ER) | payer OTHER ==
[~2019-12-20] VITALS: Ht 154.9 cm; Wt 59.0 kg
[~2019-12-20] MED LIST changes: +CEPHALEXIN500 MG ORAL; +WOMEN'S 50 PLU1 EACH PO
[2019-12-21] VITALS: BP 121/81
--- NOTE | 2019-12-21 | NUR ---
ED Nurse Note: Pt walked into ED for c/o cough x2 days and sore on L foot. Pt denies shortness of breath or fever. Pt is breathing normal and unlabored. No cardiac distress noted. Pt is aaox4, ambulatory with steady gait.
--- NOTE | 2019-12-21 00:10 | Emergency Room Report ---
History of Present Illness General Chief Complaint: Upper Respiratory Illness Source: Patient Present Illness HPI This is a 64-year-old female with history of high blood pressure. She also a history of cocaine abuse. She presents with 2 chief complaint. The first complaint was cough. She had some coughing after smoking 2 days ago. It resolved but now she wants to make sure everything is okay. She denies any fever chills but no nausea no vomiting. Coughing was nonproductive nature. No pain. Her second complaint is that she has a wound on her left foot. She thought it may be secondary to poor circulation. This been ongoing for 2 weeks. She said it was itching 1 night and she rubbed it with the heel of the right foot. The next day it was bleeding. She said is some redness and some drainage but that resolved. She been keeping it clean. Denies any fever chills but denies any pain. No nausea no vomiting. No fever chills. 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 Patient History Past Medical History: see triage record, old chart reviewed, HTN Past Surgical History: none Pertinent Family History: none Social History: Reports: smoking, drug use Last Menstrual Period: n/a Now: No Immunizations: other Reviewed Nursing Documentation: PMH: Agreed; PSxH: Agreed Nursing Documentation-PMH Hx Cardiac Problems: No - Arthritis Hx Hypertension: Yes Hx Seizures: Yes Review of Systems Eye: Denies: eye pain, blurred vision ENT: Denies: ear pain, nose congestion, throat swelling Respiratory: Reports: cough; Denies: shortness of breath Cardiovascular: Denies: chest pain, palpitations Gastrointestinal: Denies: abdominal pain, diarrhea, nausea, vomiting Musculoskeletal: Denies: back pain, joint pain Skin: Denies: rash Neurological: Denies: headache, numbness Endocrine: Denies: increased thirst, increased urine Hematologic/Lymphatic: Denies: easy bruising All Other Systems: negative except mentioned in HPI Physical Exam Vital Signs Date Time Temp Pulse Resp B/P (MAP) Pulse Ox O2 Delivery O2 Flow Rate FiO2 12/20/19 23:52 98.4 94 18 121/81 (94) 76 Room Air Vitals normal Sp02 EP Interpretation: reviewed, normal General Appearance: well appearing, no apparent distress, alert Head: normocephalic, atraumatic Eyes: bilateral eye PERRL, bilateral eye EOMI ENT: hearing grossly normal, normal pharynx Neck: full range of motion, supple, no meningismus Respiratory: chest non-tender, lungs clear, normal breath sounds Cardiovascular #1: regular rate, rhythm, no murmur Gastrointestinal: normal bowel sounds, non tender, no mass, no organomegaly, no bruit, non-distended Musculoskeletal: back normal, normal range of motion, gait/station normal, other - Left foot: Dorsum of the foot there is a 1 cm skin abrasion and ulceration. Minimal erythema. No drainage. No pus. No crepitance. Psychiatric: mood/affect normal Medical Decision Making Diagnostic Impression: Primary Impression: Skin ulceration Qualified Codes: L98.491 - Non-pressure chronic ulcer of skin of other sites limited to breakdown of skin Additional Impressions: Cough Cocaine abuse Medication refill ER Course Patient with a cough that resolved. No evidence of any infection. Lungs are clear. Unlikely to be COVID infection. She also has an ulceration of the skin of her left foot. She has good circulation. We will put her on antibiotics because of increased risk of infection because of her drug abuse. Will discharge home. She also asked for refill on her vitamin D. Last Vital Signs Date Time Temp Pulse Resp B/P (MAP) Pulse Ox O2 Delivery O2 Flow Rate FiO2 12/20/19 23:52 98.4 94 18 121/81 (94) 76 Room Air Status: unchanged Disposition: HOME, SELF-CARE Condition: Stable Scripts Mv-Mn/Folic Acid/Calcium/Vit K (Women's 50 Plus Multivit Tab) 1 Each Tablet 1 EACH PO DAILY, #100 TAB Prov: Chava García MD 12/21/19 Cephalexin* (KEFLEX*) 500 Mg Capsule 500 MG ORAL TID, #21 CAP Prov: hCava García MD 12/21/19 Referrals: [facility] (PCP) Additional Instructions: Keep wound clean. Stop using drugs. Follow-up with your doctor in 7 days but return if worse. Chava García MD December 21, 2019 00:10
[2019-12-21 00:15] VITALS: BP 121/81
--- NOTE | 2019-12-21 00:15 | NUR ---
ER DISCHARGE NOTE: Patient is cleared to be discharged per ERMD, pt is aox4, on room air, with stable vital signs. pt was given dc and prescription instructions, pt was able to verbalize understanding, pt id band removed. pt is able to ambulate with steady gait. pt took all belongings.
== END | disposition home or self-care (01) ==
LOC: EMR 23:59
DX: R05 Cough (principal); F14.10 Cocaine abuse, uncomplicated; L98.491 Non-pressure chronic ulcer of skin of other sites limited to breakdown of skin; Z76.0 Encounter for issue of repeat prescription; I10 Essential (primary) hypertension; F17.200 Nicotine dependence, unspecified, uncomplicated; G40.909 Epilepsy, unspecified, not intractable, without status epilepticus; M19.90 Unspecified osteoarthritis, unspecified site
CPT/HCPCS: 99282

== ENCOUNTER → 2020-08-16 | Emergency (ER) | payer OTHER ==
[~2020-08-16] VITALS: Ht 157.5 cm; Wt 59.0 kg
[~2020-08-16] MED LIST changes: +Ketorolac 60mg Inj IM ONE
[2020-08-16 04:41] VITALS: BP 135/80
--- NOTE | 2020-08-16 04:53 | Emergency Room Report ---
History of Present Illness General Chief Complaint: General Complaint Source: Patient Present Illness HPI This is a 65-year-old female with history of cocaine abuse. She presents with chief complaint of numbness to both hands. This is a chronic problem but worse in the last couple weeks. She says she cannot sleep because of it. She has been here before for the same thing. Denies any trauma. No fever chills but no swelling. She wanted a shot to help with her pain. She says she has Neurontin at home and is not helping. 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 Patient History Past Medical History: see triage record, old chart reviewed Past Surgical History: other Pertinent Family History: none Social History: Reports: drug use Now: No Immunizations: other Reviewed Nursing Documentation: PMH: Agreed; PSxH: Agreed Nursing Documentation-PMH Hx Cardiac Problems: No - Arthritis Hx Hypertension: Yes Hx Seizures: Yes Review of Systems Eye: Denies: eye pain, blurred vision ENT: Denies: ear pain, nose congestion, throat swelling Respiratory: Denies: cough, shortness of breath Cardiovascular: Denies: chest pain, palpitations Gastrointestinal: Denies: abdominal pain, diarrhea, nausea, vomiting Musculoskeletal: Denies: back pain, joint pain Skin: Denies: rash Neurological: Denies: headache, numbness Endocrine: Denies: increased thirst, increased urine Hematologic/Lymphatic: Denies: easy bruising All Other Systems: negative except mentioned in HPI Physical Exam Vital Signs Date Time Temp Pulse Resp B/P (MAP) Pulse Ox O2 Delivery O2 Flow Rate FiO2 08/16/20 04:41 97.5 78 16 135/80 (98) 98 Room Air Vitals unremarkable Sp02 EP Interpretation: reviewed, normal General Appearance: well appearing, no apparent distress, alert Head: normocephalic, atraumatic Eyes: bilateral eye PERRL, bilateral eye EOMI ENT: hearing grossly normal, normal pharynx Neck: full range of motion, supple, no meningismus Respiratory: chest non-tender, lungs clear, normal breath sounds Cardiovascular #1: regular rate, rhythm, no murmur Gastrointestinal: normal bowel sounds, non tender, no mass, no organomegaly, no bruit, non-distended Musculoskeletal: back normal, normal range of motion, gait/station normal Psychiatric: mood/affect normal Medical Decision Making Diagnostic Impression: Primary Impression: Paresthesia of both hands ER Course This patient presents with paresthesia of both hands. No evidence of septic joint or infection. No trauma. Will discharge home. Last Vital Signs Date Time Temp Pulse Resp B/P (MAP) Pulse Ox O2 Delivery O2 Flow Rate FiO2 08/16/20 04:41 97.5 78 16 135/80 (98) 98 Room Air Status: improved Disposition: HOME, SELF-CARE Condition: Stable Referrals: [facility],REFERR[facility] (PCP) Additional Instructions: Follow-up with your doctor in 7 days. Continue with your Neurontin. Return if symptoms worsen. Chava García MD Aug 16, 2020 04:53
== END | disposition home or self-care (01) ==
LOC: EMR 04:45
DX: R20.2 Paresthesia of skin (principal); I10 Essential (primary) hypertension; G40.909 Epilepsy, unspecified, not intractable, without status epilepticus; F14.11 Cocaine abuse, in remission
CPT/HCPCS: 96372; Z7502; 99282